=== PATIENT | male | born 1975 | race Two or more races ===

== ENCOUNTER 2017-05-21 05:18 | Emergency (ER) | payer OTHER ==
[~2017-05-21] VITALS: Ht 172.7 cm; Wt 69.2 kg
[2017-05-21] MEDS ORDERED: OXYcodone/APAP 5/325MG TABLET ONE (05:45)
[2017-05-21] MEDS ORDERED: KETOROLAC 30 MG/1 ML ONE (05:46)
[2017-05-21] MEDS ORDERED: KETOROLAC 30 MG/1 ML IM ONE (06:00)
[2017-05-21] MEDS ORDERED: OXYcodone/APAP 5/325MG TABLET PO ONE (06:00)
[2017-05-21 06:54] VITALS: BP 122/67
== END 2017-05-21 07:16 | disposition home or self-care (01) ==
LOC: ED 07:00
DX: S46.812A Strain of other muscles, fascia and tendons at shoulder and upper arm level, left arm, initial encounter (principal); W19.XXXA Unspecified fall, initial encounter; Y93.89 Activity, other specified; Y92.328 Other athletic field as the place of occurrence of the external cause; Y99.9 Unspecified external cause status
CPT/HCPCS: 72050; 73030; 96372; 99284; J1885

== ENCOUNTER → 2017-06-07 | Outpatient (CLI) | payer OTHER | END | disposition home or self-care (01) | LOC: CFH 06:47 | PROVIDERS: ATTEND Physician Assistant | DX: M47.22 Other spondylosis with radiculopathy, cervical region (principal); M48.02 Spinal stenosis, cervical region | CPT/HCPCS: 72141 ==